=== PATIENT | female | born 2000 ===

== ENCOUNTER 2020-07-05 09:30 | Outpatient (CLI) | payer BC ==
[2020-07-05] MEDS ORDERED: BARIUM SULFATE 135 ML SUSP.RECON (E-Z-HD) PO ONE (09:47)
== END 2020-07-05 20:48 | disposition home or self-care (01) ==
LOC: SRD 09:30
PROVIDERS: ATTEND Otolaryngology Plastic Surgery within the Head & Neck
DX: K21.9 Gastro-esophageal reflux disease without esophagitis (principal)
CPT/HCPCS: 74220-TC